=== PATIENT | male | born 1960 | race African-American/Black ===

== ENCOUNTER 2019-05-16 08:11 | Outpatient (CLI) | payer MEDICARE, OTHER ==
--- NOTE | 2019-05-16 09:56 | CT ---
CT THORAX WITH CONTRAST CT ABDOMEN WITH CONTRAST CT PELVIS WITH CONTRAST: DATE: 05/16/2019. HISTORY: A 59-year-old male with rectal cancer. Followup surveillance for metastatic disease and tumor recurr ence. TECHNIQUE: IV iodinated contrast media: Isovue 370. Oral contrast media: Administered. Single phase scans of thorax, abdomen, and pelvis. COMPARISON: 10/28/2018. FINDINGS: Thorax: The 6 mm noncalcified right lower lobe pulmonary nodule abutting the major fissure has morphology and location consistent with a benign intrapulmonary lymph node. No new pulmonary nodules. No mediasti nal or hilar lymphadenopathy. Normal thoracic aorta. No cardiomegaly. No pleural effusion or pneum othorax. Abdomen: The liver is normal, with no evidence of hepatic metastasis. Benign exophytic left renal cyst is sta ble. No abdominal aortic aneurysm. No retroperitoneal, mejia hepatis, or mesenteric lymphadenopathy . No small bowel dilation. Colostomy in left lower quadrant. No ascites. Right kidney, pancreas, right adrenal, and spleen are normal. Thickening of left adrenal could represent hyperplasia or adre nal adenoma. This has been stable since 07/21/2017. Spleen is normal. Pelvis: Unremarkable urinary bladder. Post surgical scar tissue in presacral space. No free fluid. No savanna c chain lymphadenopathy. Skeletal: No compelling evidence of skeletal metaphysis. No interval change overall. IMPRESSION: 1. No evidence of tumor recurrence or metastatic disease. 2. Status post colostomy. 3. No interval change overall since 10/28/2018. LINDA Reynolds POS: OFF
[2019-05-16] MEDS ORDERED: Iopamidol-370 76% 500 ML 1 ML ONE (14:55)
== END 2019-05-16 08:12 | disposition home or self-care (01) ==
LOC: BICCT 08:11
PROVIDERS: ATTEND Internal Medicine Hematology & Oncology
DX: C20 Malignant neoplasm of rectum (principal); R91.1 Solitary pulmonary nodule; N53.19 Other ejaculatory dysfunction; Z90.49 Acquired absence of other specified parts of digestive tract
CPT/HCPCS: 71260; 74177; 82565; Q9967

== ENCOUNTER 2019-11-28 08:17 | Outpatient (CLI) | payer MEDICARE, MEDICAID ==
--- NOTE | 2019-11-28 09:37 | CT ---
EXAM: CT of the chest with contrast CT of the abdomen with contrast HISTORY: Rectal cancer with lung nodules COMPARISON: 05/16/2019 TECHNIQUE: 1. Multiple contiguous axial images were obtained in a CT the chest with contrast. Coronal and sagitt al reformats were performed. 2. Multiple contiguous axial images were obtained and a CT of the abdomen with contrast. Oral contras t was administered. Coronal and sagittal reformats were performed. The pelvis was excluded. FINDINGS: CT CHEST: HEART: Normal in size without focal cardiac abnormality MEDIASTINUM: No hilar or mediastinal lymphadenopathy. There are calcified right hilar lymph nodes. LUNGS: 2 stable areas of nodularity are associated with the right major fissure measuring up to 6 mm in size. These likely represent interfissural lymph nodes. PLEURAL SPACE: No pneumothorax or pleural effusion. CHEST WALL SOFT TISSUES: Unremarkable CT ABDOMEN/PELVIS: ABDOMEN: LIVER: within normal limits. BILE DUCTS: Normal caliber. GALLBLADDER: No calcified gallstones. Normal caliber wall. PANCREAS: within normal limits. SPLEEN: within normal limits. ADRENALS: within normal limits. KIDNEYS: Hypodensities measuring up to 3.0 cm in size represent cysts. PERITONEUM: No ascites or free air, no fluid collection. BOWEL: Normal caliber. MESENTERY AND RETROPERITONEUM: No enlarged mesenteric or retroperitoneal lymph nodes. VESSELS: Atherosclerotic calcifications. ABDOMINAL WALL: Left lower quadrant colostomy OSSEOUS STRUCTURES: Degenerative changes in the spine. IMPRESSION: 1. No evidence of recurrent or metastatic disease. 2. Stable nodularities in the right lung likely represent intrafissural lymph nodes.
--- NOTE | 2019-11-28 10:16 | RAD ---
XR Sinuses Nunes View Only HISTORY: MRI clearance COMPARISON: None. FINDINGS: No radiopaque foreign body is seen.
[2019-11-28] MEDS ORDERED: Iopamidol 370 76% 100 ML VIAL ONE (11:23)
--- NOTE | 2019-11-28 11:32 | MRI ---
EXAM: MRI of the pelvis without and with contrast HISTORY: History of rectal cancer status post colostomy and APR. COMPARISON: None TECHNIQUE: Multiplanar multisequence MR images were obtained of the pelvis without and with IV contra st. FINDINGS: The patient is status post end colostomy and abdominal perineal resection. There is soft tissue enhan cement in the presacral soft tissues from prior surgery. No pelvic mass is seen. The prostate and seminal vesicles are grossly intact. No enlarged pelvic lymph nodes are seen. No marrow signal abnormality is present. An ostomy is seen in the left abdominal wall. IMPRESSION: No evidence of recurrent or metastatic disease
== END 2019-11-28 08:18 | disposition home or self-care (01) ==
LOC: BICCT 08:17
PROVIDERS: ATTEND Internal Medicine Hematology & Oncology
DX: C20 Malignant neoplasm of rectum (principal); R91.8 Other nonspecific abnormal finding of lung field; K62.89 Other specified diseases of anus and rectum
CPT/HCPCS: 70210; 71260; 72197; 74160; 82565; Q9967

== ENCOUNTER 2020-05-21 07:48 | Outpatient (CLI) | payer MEDICARE, OTHER ==
[2020-05-21] MEDS ORDERED: Iopamidol 370 76% 100 ML VIAL ONE (09:49)
--- NOTE | 2020-05-21 10:01 | CT ---
CT CHEST WITH IV CONTRAST CT ABDOMEN WITH IV CONTRAST CT PELVIS WITHOUT CONTRAST HISTORY: Malignant neoplasm of rectum. Other ejaculatory dysfunction COMPARISON: CT chest and abdomen dated 11/28/[address] chest, abdomen and pelvis dated 05/16/2019 FINDINGS: CHEST: No mediastinal, hilar or axillary mass or lymphadenopathy is seen. No pleural or pericardial effusion s are noted. There are 2 so fissural nodules associated with the right major fissure, measuring up to 6 mm are stable. No other lung nodules are seen. No pleural or pericardial effusions are identi fied. ABDOMEN: The liver, spleen, pancreas, right adrenal gland and right kidney are normal. Asymmetric prominence o f the left adrenal gland is stable. Cysts in the left kidney are stable. No calcified gallstones are seen. No free air, free fluid or lymphadenopathy is seen in the abdomen. The left lower quadrant colostomy is again noted and appears patent. PELVIS: No free fluid or lymphadenopathy is seen. Soft tissue scarring in the presacral space is again noted. There is mild prominence of the urinary bladder wall likely due to incomplete distention. VASCULAR: There are vascular calcifications without evidence of aneurysmal dilatation of the thoracoabdominal a marly. BONES: There are degenerative changes in the spine. No osteolytic or osteoblastic lesions are noted. IMPRESSION: No evidence of recurrent or metastatic disease.
== END 2020-05-21 07:49 | disposition home or self-care (01) ==
LOC: BICCT 07:48
PROVIDERS: ATTEND Internal Medicine Hematology & Oncology
DX: C20 Malignant neoplasm of rectum (principal); N53.19 Other ejaculatory dysfunction
CPT/HCPCS: 71260; 74177; 82565; Q9967

== ENCOUNTER 2020-09-18 12:21 | Outpatient (CLI) | payer MEDICARE, MEDICAID | END 2020-09-18 12:22 | disposition home or self-care (01) | LOC: BICULT 12:21 | PROVIDERS: ATTEND Internal Medicine Hematology & Oncology | DX: C20 Malignant neoplasm of rectum (principal); G93.89 Other specified disorders of brain | CPT/HCPCS: 76999 ==

== ENCOUNTER 2020-12-31 10:26 | Outpatient (CLI) | payer MEDICARE, OTHER ==
[~2020-12-31 10:26] MED LIST: Iopamidol-370 76% 500 ML 1 ML ONE
== END 2020-12-31 10:27 | disposition home or self-care (01) ==
LOC: BICCT 10:26
PROVIDERS: ATTEND Internal Medicine Hematology & Oncology
DX: C18.9 Malignant neoplasm of colon, unspecified (principal)
CPT/HCPCS: 71260; 74177; Q9967

== ENCOUNTER 2021-06-12 10:39 | Outpatient (CLI) | payer MEDICARE, OTHER ==
[2021-06-12] MEDS ORDERED: Iopamidol 370 76% 100 ML VIAL ONE (10:42)
== END 2021-06-12 10:40 | disposition home or self-care (01) ==
LOC: CT 10:39
PROVIDERS: ATTEND Internal Medicine Hematology & Oncology
DX: C18.9 Malignant neoplasm of colon, unspecified (principal)
CPT/HCPCS: 71260; 74177

== ENCOUNTER 2021-12-31 08:10 | Outpatient (CLI) | payer OTHER ==
[2021-12-31] MEDS ORDERED: Iopamidol 370 76% 100 ML VIAL ONE (09:23)
== END 2021-12-31 08:11 | disposition home or self-care (01) ==
LOC: CT 08:10
PROVIDERS: ATTEND Internal Medicine Hematology & Oncology
DX: C20 Malignant neoplasm of rectum (principal); R91.1 Solitary pulmonary nodule; N53.19 Other ejaculatory dysfunction
CPT/HCPCS: 71260; 74177; 82565; Q9967

== ENCOUNTER 2024-02-14 09:49 | Emergency (ER) | payer OTHER, MEDICAID ==
[2024-02-14] MEDS ORDERED: Acetaminophen 500 MG TAB ONE (10:30)
== END 2024-02-14 10:48 ==
LOC: ERS 09:49
DX: R05.9 Cough, unspecified (principal); R68.83 Chills (without fever); R52 Pain, unspecified; F17.210 Nicotine dependence, cigarettes, uncomplicated
CPT/HCPCS: 87428; 99283

== ENCOUNTER 2024-05-31 18:18 | Emergency (ER) | payer MEDICAID, OTHER ==
[~2024-05-31 18:18] MED LIST changes: -Iopamidol-370 76% 500 ML 1 ML ONE; +Iopamidol-370 76% 500 ML MDV (1 ML CHARGE) ONE
[2024-05-31 21:03] LABS: #Basophils Less than 0.03 10x3/uL (0.0-0.2); %Basophils 0.3 % (0.0-1.0); %Eosinophils 1.3 % (0.0-10.0); %Lymphocytes 31.7 % (21.0-51.0); %Monocytes 8.4 % (0.0-10.0); %Neutrophils 58.2 % (42.0-75.0); Hematocrit 42.7 % (42.0-52.0); Hemoglobin 14.3 g/dL (14.0-18.0); Mean Corpuscular HGB CONC 33.5 g/dL (32.0-36.0); Mean Corpuscular Hemoglobin 31.4 pg (27.0-31.0); Mean Corpuscular Volume 93.8 fL (78.0-98.0); Mean Platelet Volume 9.1 fL (7.4-10.4); Platelet Count 227 10x3/uL (130-400); Red Blood Cell (RBC) Count 4.55 mill/uL (4.70-6.10)
[2024-05-31 21:21] LABS: ALT (SGPT) 11 U/L (Less than 45); AST (SGOT) 23 U/L (11-34); Albumin 4.3 g/dL (3.1-4.5); Alkaline Phosphatase 74 U/L (40-110); Anion Gap 13 mmol/L (10-20); BUN (Urea Nitrogen) 15 mg/dL (8.4-25.7); Bilirubin, Total 0.3 mg/dL (0.3-1.2); Calc. Creatinine Clearance 0 mL/min (70-130); Calcium 9.7 mg/dL (7.8-10.44); Carbon Dioxide 24 mmol/L (23-31); Chloride 110 mmol/L (98-107); Estimated GFR 66; Globulin 2.8 g/dL (2.4-3.5); Glucose 81 mg/dL (80-115); Potassium 4.2 mmol/L (3.5-5.1); Protein, Total 7.1 g/dL (5.8-8.1); Sodium 143 mmol/L (136-145)
[2024-05-31 21:27] LABS: Troponin I Less than 0.010 ng/mL (< 0.028)
[2024-05-31 22:55] LABS: Lipase 21 U/L (8-78); Magnesium 2.2 mg/dL (1.6-2.6)
[2024-05-31] MEDS ORDERED: diphenhydrAMINE 50 MG/ML VIAL ONE (23:26)
[2024-05-31] MEDS ORDERED: Famotidine/PF 20 mg/2ml Vial ONE (23:26)
[2024-05-31] MEDS ORDERED: Ondansetron PF 4 MG/2 ML Vial ONE (23:26)
[2024-05-31] MEDS ORDERED: Morphine 4 MG/ML VIAL ONE (23:26)
[2024-05-31] MEDS ORDERED: methylPREDNISolone Sod Succ 40 MG VIAL ONE (23:26)
[2024-06-01 04:27] LABS: Bacteria/HPF None Seen HPF (None Seen); Bilirubin Negative (Negative); Blood, Urine 1+ (Negative); CAUTI Indications for Culture Dysuria,urgency,freq; Clarity Clear (Clear); Glucose, Urine (Dipstick) Normal (Negative); Ketone, Urine Negative (Negative); Leukocyte Negative Leu/uL (Negative); Nitrite Negative (Negative); Protein, Urine (Dipstick) Negative (Neg-Trace); Squamous Epithelial None Seen HPF (0-3); Urobilinogen Normal mg/dL (Less than 2); WBC/HPF 0-3 HPF (0-3); pH, Urine 5.5 (5.0-9.0)
[2024-06-01 04:28] LABS: Specific Gravity, Urine Greater than 1.060 (1.002-1.036)
[2024-06-01 04:29] LABS: Urine Culture Reflex No No
[2024-06-01 05:03] LABS: Troponin I Less than 0.010 ng/mL (< 0.028)
== END 2024-06-01 05:16 | disposition home or self-care (01) ==
LOC: ERS 18:18
DX: R07.9 Chest pain, unspecified (principal); M79.604 Pain in right leg
CPT/HCPCS: 71045; 74177; 80053; 81001; 83690; 83735; 83880; 84484; 85025; 93005; 93971; 94760; J1200; J2270; J2405; J2919; J3490; 36415; 96374; 96375; Q9967

== ENCOUNTER 2025-02-03 19:30 | Emergency (ER) | payer OTHER ==
[2025-02-03 20:27] LABS: #Basophils Less than 0.03 10x3/uL (0.0-0.2); #Eosinophils 0.04 10x3/uL (0.0-0.7); #Monocytes 0.89 10x3/uL (0.11-0.59); #Neutrophils 5.51 10x3/uL (1.40-6.50); %Basophils 0.2 % (0.0-1.0); %Eosinophils 0.5 % (0.0-10.0); %Lymphocytes 22.3 % (21.0-51.0); %Monocytes 10.7 % (0.0-10.0); %Neutrophils 65.9 % (42.0-75.0); Hematocrit 41.2 % (42.0-52.0); Hemoglobin 14.0 g/dL (14.0-18.0); Mean Corpuscular Hemoglobin 31.0 pg (27.0-31.0); Mean Corpuscular Volume 91.4 fL (78.0-98.0); Platelet Count 219 10x3/uL (130-400); Red Blood Cell (RBC) Count 4.51 mill/uL (4.70-6.10); White Blood Cell (WBC) Count 8.35 10x3/uL (4.8-10.8)
[2025-02-03 20:37] LABS: Bacteria/HPF None Seen HPF (None Seen); CAUTI Indications for Culture Alt mental st,lethar; Glucose, Urine (Dipstick) Normal (Negative); Leukocyte Negative Leu/uL (Negative); Protein, Urine (Dipstick) 30 mg/dL (Neg-Trace); Specific Gravity, Urine 1.031 (1.002-1.036); WBC/HPF 0-3 HPF (0-3)
[2025-02-03 20:46] LABS: Acetaminophen Less than 10 mcg/mL (Less than 10); Salicylate Less than 8.0 mg/dL (Less than 8.0)
[2025-02-03 20:49] LABS: ALT (SGPT) Less than 7 U/L (Less than 45); AST (SGOT) 18 U/L (11-34); Albumin 4.1 g/dL (3.1-4.5); Alkaline Phosphatase 77 U/L (40-110); Anion Gap 14 mmol/L (10-20); BUN (Urea Nitrogen) 24 mg/dL (8.4-25.7); Bilirubin, Total 0.5 mg/dL (0.3-1.2); Calc. Creatinine Clearance 0 mL/min (70-130); Calcium 9.7 mg/dL (7.8-10.44); Carbon Dioxide 25 mmol/L (23-31); Chloride 108 mmol/L (98-107); Globulin 2.4 g/dL (2.4-3.5); Glucose 78 mg/dL (80-115); Potassium 3.7 mmol/L (3.5-5.1); Sodium 143 mmol/L (136-145)
[2025-02-03 20:51] LABS: Urine Culture Reflex No No
[2025-02-03 22:30] LABS: Cocaine Metabolite Screen PRELIM POSITIVE (Negative); THC/Cannabinoid Screen Negative (Negative); Tricyclic Screen Negative (Negative)
== END 2025-02-04 01:09 | disposition home or self-care (01) ==
LOC: ERS 19:30
DX: F14.10 Cocaine abuse, uncomplicated (principal); Z86.73 Personal history of transient ischemic attack (TIA), and cerebral infarction without residual deficits; F17.210 Nicotine dependence, cigarettes, uncomplicated
CPT/HCPCS: 51701; 70450; 80053; 80306; 80307; 81001; 83605; 85025; 93005

== ENCOUNTER 2025-02-04 04:59 | Emergency (ER) | payer OTHER ==
[2025-02-04 06:26] LABS: Cocaine Metabolite Screen PRELIM POSITIVE (Negative); THC/Cannabinoid Screen Negative (Negative); Tricyclic Screen Negative (Negative)
== END 2025-02-04 07:33 ==
LOC: EEVIPCON 04:59 → ERS 04:59
DX: R45.851 Suicidal ideations (principal); F17.210 Nicotine dependence, cigarettes, uncomplicated; Z86.73 Personal history of transient ischemic attack (TIA), and cerebral infarction without residual deficits; F14.10 Cocaine abuse, uncomplicated
CPT/HCPCS: 51701; 70450; 80053; 80306; 80307; 81001; 83605; 85025; 93005; 99285